=== PATIENT | female | born 1975 | race Two or more races ===

== ENCOUNTER 2019-03-25 14:52 | Inpatient (IN) | payer OTHER ==
[2019-03-25 18:41] VITALS: BMI 24.5
--- NOTE | 2019-03-25 19:25 | HP ---
CIWA Score - Admission Criteria [facility]ASAS Guidelines: Admission for Medically Managed Detox: Requires at least one of the followin. CIWA greater than 12 2. Seizures within the past 24 hours 3. Delirium tremens within the past 24 hours 4. Hallucinations within the past 24 hours 5. Acute intervention needed for co occurring medical disorder 6. Acute intervention needed for co occurring psychiatric disorder 7. Severe withdrawal that cannot be handled at a lower level of care (continued vomiting, continued diarrhea, abnormal vital signs) requiring intravenous medication and/or fluids 8. Admitting History and Physical - Past Medical History ...LMP: 04/10/15 - Smoking History Smoking history: Current every day smoker Have you smoked in the past 12 months: Yes Aproximately how many cigarettes per day: 10 - Alcohol/Substance Use Hx Alcohol Use: Yes (reports drinking since 12 years old,2-6 pcks and 2 pints of vodka daily) Admission [facility] Allergies/Adverse Reactions: Allergies Allergy/AdvReac Type Severity Reaction Status Date / Time Fish Containing Products Allergy Vomiting Verified 03/25/19 18:24 No Known Drug Allergies Allergy Verified 04/26/15 17:14 seafood Allergy Severe Vomiting Uncoded 04/26/15 17:14 - Ebola screening Have you traveled outside of the country in the last 21 days: No (N) Have you had contact with anyone from an Ebola affected area: No Do you have a fever: No Patient History - Patient Medical History Hx Anemia: No Hx Asthma: Yes (ON ALBUTEROL INHALER.) Hx Chronic Obstructive Pulmonary Disease (COPD): No Hx Cancer: No Hx Cardiac Disorders: No Hx Congestive Heart Failure: No Hx Hypertension: No Hx Hypercholesterolemia: No Hx Pacemaker: No HX Cerebrovascular Accident: No Hx Seizures: No Hx Dementia: No Hx Diabetes: No Hx Gastrointestinal Disorders: Yes (UPSET STOMACH) Hx Liver Disease: No Hx Genitourinary Disorders: No Hx Sexually Transmitted Disorders: No Hx Renal Disease (ESRD): No Hx Thyroid Disease: No Hx Human Immunodeficiency Virus (HIV): No (last 2007) Hx Hepatitis C: No Hx Depression: No Hx Suicide Attempt: No Hx Bipolar Disorder: No Hx Schizophrenia: No - Patient Surgical History Past Surgical History: No Hx Neurologic Surgery: No Hx Cataract Extraction: No Hx Cardiac Surgery: No Hx Lung Surgery: No Hx Breast Surgery: No Hx Breast Biopsy: No Hx Abdominal Surgery: No Hx Appendectomy: No Hx Cholecystectomy: No Hx Genitourinary Surgery: No Hx Section: No Hx Orthopedic Surgery: No Anesthesia Reaction: No - PPD History Date: 04/19/15 Results: 0MM - Reproductive History Last Menstrual Period: 04/10/15 - Smoking Cessation Smoking history: Current every day smoker Have you smoked in the past 12 months: Yes Aproximately how many cigarettes per day: 10 Hx Chewing Tobacco Use: No Initiated information on smoking cessation: Yes 'Breaking Loose' booklet given: 03/25/19 - Substance & Tx. History Hx Alcohol Use: Yes Hx Substance Use: Yes (PCP ) Substance Use Type: Alcohol - Substances abused PCP Substance route: Smoking Frequency: 1-2 times per week Amount used: 1 bag Age of first use: 32 Date of last use: 03/24/19 Alcohol Substance route: Oral Frequency: 1-2 times per week Amount used: 1-2 can x 24 - 40 oz beer Age of first use: 15 Date of last use: 03/24/19 Admission Physical Exam BHS - Vital Signs Vital Signs: Vital Signs - 24 hr 03/25/19 18:20 Temperature 97.2 F L Pulse Rate 86 Respiratory 20 Rate Blood Pressure 141/91 Breathalyzer - Breathalyzer Breathalyzer: 0 Urine Drug Screen - Test Device Lot number: [id number] Expiration date: 11/19/20 - Control Is test valid?: Yes - Results Drug screen NEGATIVE: No Urine drug screen results: MTD-Methadone
[2019-03-25] MEDS ORDERED: ALBUTEROL SO4 8 GM HFA INHALER IH PRN (19:26)
--- NOTE | 2019-03-25 19:34 | HP ---
CIWA Score - Admission Criteria OASAS Guidelines: Admission for Medically Managed Detox: Requires at least one of the followin. CIWA greater than 12 2. Seizures within the past 24 hours 3. Delirium tremens within the past 24 hours 4. Hallucinations within the past 24 hours 5. Acute intervention needed for co occurring medical disorder 6. Acute intervention needed for co occurring psychiatric disorder 7. Severe withdrawal that cannot be handled at a lower level of care (continued vomiting, continued diarrhea, abnormal vital signs) requiring intravenous medication and/or fluids 8. Admitting History and Physical - Past Medical History ...LMP: 04/10/15 - Smoking History Smoking history: Current every day smoker Have you smoked in the past 12 months: Yes Aproximately how many cigarettes per day: 10 - Alcohol/Substance Use Hx Alcohol Use: Yes Admission ROS [facility] - HPI Chief Complaint: PCP and alcohol rehabilitation Allergies/Adverse Reactions: Allergies Allergy/AdvReac Type Severity Reaction Status Date / Time Fish Containing Products Allergy Vomiting Verified 03/25/19 18:24 No Known Drug Allergies Allergy Verified 04/26/15 17:14 seafood Allergy Severe Vomiting Uncoded 04/26/15 17:14 History of Present Illness: Patient is as 43 yo male with hx of alcohol use disorder and PCP use disorder is here here for rehabilitation, patient reports he was referred from [facility] outpatient. utox positive for methadone, denies use of methadone or methadone program. Patient PMHX: bronchial Asthma. Psych: depression and anxiety on meds. Denies SI/HI or hx of suicide attempt. Denies hx of seizures or blackouts. Exam Limitations: No Limitations - Ebola screening Have you traveled outside of the country in the last 21 days: No (N) Have you had contact with anyone from an Ebola affected area: No Do you have a fever: No - Review of Systems Constitutional: No Symptoms Reported EENT: reports: No Symptoms Reported Respiratory: reports: See HPI Cardiac: reports: No Symptoms Reported GI: reports: No Symptoms Reported : reports: No Symptoms Reported Musculoskeletal: reports: Back Pain Integumentary: reports: No Symptoms Reported Neuro: reports: No Symptoms reported Endocrine: reports: No Symptoms Reported Hematology: reports: No Symptoms Reported Psychiatric: reports: Orientated x3, Anxious Other Systems: Reviewed and Negative Patient History - Patient Medical History Hx Anemia: No Hx Asthma: Yes (ON ALBUTEROL INHALER.) Hx Chronic Obstructive Pulmonary Disease (COPD): No Hx Cancer: No Hx Cardiac Disorders: No Hx Congestive Heart Failure: No Hx Hypertension: No Hx Hypercholesterolemia: No Hx Pacemaker: No HX Cerebrovascular Accident: No Hx Seizures: No Hx Dementia: No Hx Diabetes: No Hx Gastrointestinal Disorders: Yes (UPSET STOMACH) Hx Liver Disease: No Hx Genitourinary Disorders: No Hx Sexually Transmitted Disorders: No Hx Renal Disease (ESRD): No Hx Thyroid Disease: No Hx Human Immunodeficiency Virus (HIV): No (last 2007) Hx Hepatitis C: No Hx Depression: No Hx Suicide Attempt: No Hx Bipolar Disorder: No Hx Schizophrenia: No - Patient Surgical History Past Surgical History: No Hx Neurologic Surgery: No Hx Cataract Extraction: No Hx Cardiac Surgery: No Hx Lung Surgery: No Hx Breast Surgery: No Hx Breast Biopsy: No Hx Abdominal Surgery: No Hx Appendectomy: No Hx Cholecystectomy: No Hx Genitourinary Surgery: No Hx Section: No Hx Orthopedic Surgery: No Anesthesia Reaction: No - PPD History Date: 04/19/15 Results: 0MM - Reproductive History Last Menstrual Period: 04/10/15 - Smoking Cessation Smoking history: Current every day smoker Have you smoked in the past 12 months: Yes Aproximately how many cigarettes per day: 10 Hx Chewing Tobacco Use: No Initiated information on smoking cessation: Yes 'Breaking Loose' booklet given: 03/25/19 - Substance & Tx. History Hx Alcohol Use: Yes Hx Substance Use: Yes (PCP) Substance Use Type: Alcohol Hx Substance Use Treatment: Yes ([facility] out patient. [facility] detox 2014) - Substances abused PCP Substance route: Smoking Frequency: 1-2 times per week Amount used: 1 bag Age of first use: 32 Date of last use: 03/24/19 Alcohol Substance route: Oral Frequency: 1-2 times per week Amount used: 1-2 can x 24 - 40 oz beer someitmes binge Age of first use: 15 Date of last use: 03/24/19 Admission Physical Exam BHS - Vital Signs Vital Signs: Vital Signs - 24 hr 03/25/19 18:20 Temperature 97.2 F L Pulse Rate 86 Respiratory 20 Rate Blood Pressure 141/91 - Physical General Appearance: Yes: Appropriately Dressed, Thin, Anxious HEENTM: Yes: EOMI, Hearing grossly Normal, Normal ENT Inspection, Normocephalic , Normal Voice, KHLOE, Pharynx Normal, Tm's normal Respiratory: Yes: Chest Non-Tender, Lungs Clear, Normal Breath Sounds, No Respiratory Distress, No Accessory Muscle Use Neck: Yes: Within Normal Limits Breast: Yes: Breast Exam Deferred Cardiology: Yes: Regular Rhythm, Regular Rate Abdominal: Yes: Normal Bowel Sounds, Non Tender, Flat, Soft Genitourinary: Yes: Within Normal Limits Back: Yes: Normal Inspection Musculoskeletal: Yes: Within Normal Limits Extremities: Yes: Normal Capillary Refill, Normal Inspection, Normal Range of Motion, Non-Tender Neurological: Yes: 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 NML intact, Fully Oriented, Alert, Motor Strength 5/5, Normal Mood/Affect, Normal Response Integumentary: Yes: Normal Color, Dry, Warm Lymphatic: Yes: Within Normal Limits - Diagnostic (1) Alcohol abuse Current Visit: Yes Status: Acute (2) Asthma Current Visit: Yes Status: Chronic (3) Nicotine dependence Current Visit: Yes Status: Chronic (4) PCP abuse Current Visit: Yes Status: Chronic Breathalyzer - Breathalyzer Breathalyzer: 0 Urine Drug Screen - Test Device Lot number: [id number] Expiration date: 11/19/20 - Control Is test valid?: Yes - Results Drug screen NEGATIVE: No Urine drug screen results: MTD-Methadone Inpatient Rehab Admission - Rehab Decision to Admit Inpatient rehab admission?: Yes - Initial Determination Are CD services needed?: Yes Free of communicable disease: Yes Not in need of hospitalization: Yes - Rehab Admission Criteria Previous failed treatment: Yes Poor recovery environment: Yes Comorbidities: Yes Lacks judgement: Yes Patient is meeting Inpatient Rehab admission criteria:: Yes
[2019-03-25] MEDS ORDERED: LOPERAMIDE HCL 2 MG CAPSULE PO PRN (19:37)
[2019-03-25] MEDS ORDERED: MAGNESIUM CITRATE 300 ML BOTTLE PO PRN (19:37)
[2019-03-25] MEDS ORDERED: MAG HYDROX/AL HYDROX/SIMETH 30 ML UNIT-DOSE CUP PO PRN (19:37)
[2019-03-25] MEDS ORDERED: guaiFENesin 200 MG/10 ML 10 ML UNIT-DOSE CUPS PO PRN (19:37)
[2019-03-25] MEDS ORDERED: MAGNESIUM HYDROX 2400MG/30ML ORAL SUSPENSION 30 ML CUP PO PRN (19:37)
[2019-03-25] MEDS ORDERED: ACETAMINOPHEN 325 MG TABLET (FP) PO PRN (19:37)
[2019-03-25] MEDS ORDERED: MENTHOL/PHENOL 1 EACH UD MM PRN (19:37)
[2019-03-25] MEDS ORDERED: NICOTINE POLACRILEX 2 MG GUM BC PRN (19:37)
[2019-03-25] MEDS ORDERED: P-EPHED 60MG/TRIPROLIDI 2.5MG TABLET PO PRN (19:37)
[2019-03-25] MEDS ORDERED: ALBUTEROL SO4 2.5/IPRATROPIUM 0.5 INH SOL 3 ML VIAL.NEB. NEB PRN (19:41)
[2019-03-25] MEDS ORDERED: TUBERCULIN PPD 5 TU/0.1ML VIAL ID ONE (21:05)
[2019-03-25] MEDS: THIAMINE HCL 100 MG TABLET (FP) PO SCH (21:45)
[2019-03-25] MEDS: BUDESONIDE/FORMETEROL FUMARATE 80/4.5 mcg INHALER IH SCH (21:47)
[2019-03-25] MEDS: MELATONIN 5 MG TABLETS PO PRN (23:02)
[2019-03-26] MEDS: hydrOXYzine PAMOATE 25 MG CAPSULE (FP) PO PRN (03:17)
[2019-03-26] MEDS ORDERED: PT OWN MED DRAWER 7, Y5N ONE (08:03)
[2019-03-26] MEDS: PRENATAL VITAMINS W/ FOLIC ACID TABLET (FP) PO SCH (09:43)
[2019-03-26] MEDS: BUDESONIDE/FORMETEROL FUMARATE 80/4.5 mcg INHALER IH SCH ×2 (09:43→21:40)
[2019-03-26] MEDS: NICOTINE 14 MG/24 HOURS TOPICAL PATCH TD SCH (09:43)
--- NOTE | 2019-03-26 09:47 | EKG ---
Test Reason : Blood Pressure : / mmHG Vent. Rate : 079 BPM Atrial Rate : 079 BPM P-R Int : 168 ms QRS Dur : 096 ms QT Int : 422 ms P-R-T Axes : 076 056 056 degrees QTc Int : 483 ms NORMAL SINUS RHYTHM POSSIBLE LEFT ATRIAL ENLARGEMENT INCOMPLETE RIGHT BUNDLE BRANCH BLOCK PROLONGED QT ABNORMAL ECG NO PREVIOUS ECGS AVAILABLE Confirmed by TUNG ALVARADO MD ([id number]) on 03/26/2019 9:46:44 AM Referred By: Confirmed By:TUNG ALVARADO MD
[2019-03-26 11:15] LABS: HEMATOCRIT 44.7 % (32.4-45.2); HEMOGLOBIN 14.8 GM/dL (10.7-15.3); MCH 29.3 pg (25.7-33.7); MEAN CELL VOLUME 88.9 fl (80-96); MEAN PLT VOLUME 8.2 fl (7.5-11.1); PLATELET COUNT 276 K/MM3 (134-434); RBC 5.03 M/mm3 (3.60-5.2); RDW 15.6 % (11.6-15.6); WHITE BLOOD COUNT 9.6 K/mm3 (4.0-10.0)
[2019-03-26 11:41] LABS: ALBUMIN 3.6 g/dl (3.4-5.0); BILIRUBIN,TOTAL 0.5 mg/dL (0.2-1); BLOOD UREA NITROGEN 7.3 mg/dL (7-18); CALCIUM 9.3 mg/dL (8.5-10.1); CREATININE 0.7 mg/dL (0.55-1.3); POTASSIUM 3.9 mmol/L (3.5-5.1); TOT PROT 6.9 g/dl (6.4-8.2)
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
[2019-03-26] MEDS: THIAMINE HCL 100 MG TABLET (FP) PO SCH (21:41)
[2019-03-26] MEDS: traZODone HCL 100 MG TABLET (FP) PO SCH (21:41)
[2019-03-26] MEDS: MELATONIN 5 MG TABLETS PO PRN (21:42)
[2019-03-27] MEDS: NICOTINE 14 MG/24 HOURS TOPICAL PATCH TD SCH (09:50)
[2019-03-27] MEDS: PRENATAL VITAMINS W/ FOLIC ACID TABLET (FP) PO SCH (09:50)
[2019-03-27] MEDS: BUDESONIDE/FORMETEROL FUMARATE 80/4.5 mcg INHALER IH SCH ×2 (09:50→21:55)
[2019-03-27] MEDS: IBUPROFEN 400 MG TABLET (FP) PO PRN ×2 (09:51→21:53)
[2019-03-27 18:52] LABS: URINE APPEARANCE Turbid; URINE BILIRUBIN Negative (NEGATIVE); URINE COLOR Yellow; URINE GLUCOSE (UA) Trace (NEGATIVE); URINE KETONE Negative (NEGATIVE); URINE LEUK ESTERASE Negative (NEGATIVE); URINE NITRITE Negative (NEGATIVE); URINE PROTEIN Negative (NEGATIVE); URINE UROBILINOGEN 0.2 mg/dL (0.2-1.0)
[2019-03-27 19:07] LABS: EPI CELLS 0-5 /HPF (0-5/HPF); URINE RBC 0-4 /hpf (0-4); URINE WBC 0-5 /hpf (0-5)
[2019-03-27 19:12] LABS: URINE CRYSTALS positive /hpf
[2019-03-27] MEDS: traZODone HCL 100 MG TABLET (FP) PO SCH (21:51)
[2019-03-27] MEDS: THIAMINE HCL 100 MG TABLET (FP) PO SCH (21:51)
[2019-03-27] MEDS: MELATONIN 5 MG TABLETS PO PRN (21:52)
[2019-03-27] MEDS ORDERED: PT OWN MED DRAWER 7, Y5N ONE (21:56)
[2019-03-28] MEDS: NICOTINE 14 MG/24 HOURS TOPICAL PATCH TD SCH (10:33)
[2019-03-28] MEDS: PRENATAL VITAMINS W/ FOLIC ACID TABLET (FP) PO SCH (10:33)
[2019-03-28] MEDS: BUDESONIDE/FORMETEROL FUMARATE 80/4.5 mcg INHALER IH SCH ×2 (10:34→21:21)
[2019-03-28] MEDS: IBUPROFEN 400 MG TABLET (FP) PO PRN ×2 (10:34→21:24)
[2019-03-28] MEDS ORDERED: PT OWN MED DRAWER 7, Y5N ONE ×4 (11:04→21:51)
[2019-03-28] MEDS ORDERED: METHOCARBAMOL 500 MG TABLET PO PRN (12:18)
--- NOTE | 2019-03-28 12:30 | PN ---
[facility] Progress Note Note: Patient c/o body aches and low back pain. Patient denies recent injuries and states symptoms chronic. Patient also c/o white vaginal discharge and vaginal itching. Recently treated with abx for tooth infection prior to admission. Vital Signs Temperature 97.3 F L 03/28/19 07:17 Pulse Rate 87 03/28/19 07:17 Respiratory Rate 18 03/28/19 07:17 Blood Pressure 134/81 03/28/19 07:17 O2 Sat by Pulse Oximetry (%) Laboratory Tests 03/25/19 03/26/19 03/26/19 14:25 08:10 08:10 WBC 9.6 RBC 5.03 Hgb 14.8 Hct 44.7 D MCV 88.9 MCH 29.3 D MCHC 33.0 RDW 15.6 D Plt Count 276 D MPV 8.2 Sodium 142 Potassium 3.9 Chloride 106 Carbon Dioxide 29 Anion Gap 7 L BUN 7.3 Creatinine 0.7 Est GFR (CKD-EPI)AfAm 122.13 Est GFR (CKD-EPI)NonAf 105.37 Random Glucose 84 Calcium 9.3 Total Bilirubin 0.5 AST 17 ALT 20 Alkaline Phosphatase 135 H Total Protein 6.9 Albumin 3.6 Urine Color Urine Appearance Urine pH Ur Specific [place] Urine Protein Urine Glucose (UA) Urine Ketones Urine Blood Urine Nitrite Urine Bilirubin Urine Urobilinogen Ur Leukocyte Esterase Urine WBC (Auto) Urine RBC (Auto) U Epithel Cells (Auto) Urine Crystals (Auto) Urine Bacteria (Auto) POC Urine HCG, Qual Negative RPR Titer 03/26/19 03/27/19 08:10 14:25 WBC RBC Hgb Hct MCV MCH MCHC RDW Plt Count MPV Sodium Potassium Chloride Carbon Dioxide Anion Gap BUN Creatinine Est GFR (CKD-EPI)AfAm Est GFR (CKD-EPI)NonAf Random Glucose Calcium Total Bilirubin AST ALT Alkaline Phosphatase Total Protein Albumin Urine Color Yellow Urine Appearance Turbid Urine pH 6.0 Ur Specific [place] >= 1.030 Urine Protein Negative Urine Glucose (UA) Trace Urine Ketones Negative Urine Blood Negative Urine Nitrite Negative Urine Bilirubin Negative Urine Urobilinogen 0.2 Ur Leukocyte Esterase Negative Urine WBC (Auto) 0-5 Urine RBC (Auto) 0-4 U Epithel Cells (Auto) 0-5 Urine Crystals (Auto) positive Urine Bacteria (Auto) few POC Urine HCG, Qual RPR Titer Nonreactive PE alert and oriented x 3 skin warm and dry +perrla, eoms intact bl gi nt, nd no pelvic tenderness ext full rom, amb ad stanton vaginal d/c likely yeast infection muscle cramps will order miconazole supp x 3 days flexeril 10mg bid monitor clinically
[2019-03-28] MEDS: THIAMINE HCL 100 MG TABLET (FP) PO SCH (21:22)
[2019-03-28] MEDS: traZODone HCL 100 MG TABLET (FP) PO SCH (21:22)
[2019-03-28] MEDS: MELATONIN 5 MG TABLETS PO PRN (21:23)
[2019-03-28] MEDS: CYCLOBENZAPRINE HCL 10 MG TABLET (FP) PO SCH (21:23)
[2019-03-28] MEDS: MICONAZOLE NITRATE 200 MG VAGINAL SUPPOSITORY PV SCH (21:24)
[2019-03-29] MEDS: CYCLOBENZAPRINE HCL 10 MG TABLET (FP) PO SCH ×2 (10:00→21:21)
[2019-03-29] MEDS: NICOTINE 14 MG/24 HOURS TOPICAL PATCH TD SCH (10:00)
[2019-03-29] MEDS: BUDESONIDE/FORMETEROL FUMARATE 80/4.5 mcg INHALER IH SCH ×2 (10:00→21:26)
[2019-03-29] MEDS: PRENATAL VITAMINS W/ FOLIC ACID TABLET (FP) PO SCH (10:00)
[2019-03-29] MEDS: hydrOXYzine PAMOATE 25 MG CAPSULE (FP) PO PRN (21:21)
[2019-03-29] MEDS: traZODone HCL 100 MG TABLET (FP) PO SCH (21:21)
[2019-03-29] MEDS: THIAMINE HCL 100 MG TABLET (FP) PO SCH (21:21)
[2019-03-29] MEDS: MICONAZOLE NITRATE 200 MG VAGINAL SUPPOSITORY PV SCH (21:22)
[2019-03-29] MEDS: MELATONIN 5 MG TABLETS PO PRN (21:22)
[2019-03-30] MEDS: CYCLOBENZAPRINE HCL 10 MG TABLET (FP) PO SCH ×2 (09:46→21:42)
[2019-03-30] MEDS: BUDESONIDE/FORMETEROL FUMARATE 80/4.5 mcg INHALER IH SCH ×2 (09:46→22:53)
[2019-03-30] MEDS: NICOTINE 14 MG/24 HOURS TOPICAL PATCH TD SCH (09:46)
[2019-03-30] MEDS: PRENATAL VITAMINS W/ FOLIC ACID TABLET (FP) PO SCH (09:46)
[2019-03-30] MEDS ORDERED: FLU VACC QS2019-20(6MOS UP)/PF 60 MCG/0.5 ML SYRINGE IM ONE (15:52)
[2019-03-30] MEDS ORDERED: PNEUMOCOCCAL 23 VACCINE 0.5 ML VIAL IM ONE (15:52)
[2019-03-30] MEDS ORDERED: ALBUTEROL SO4 2.5/IPRATROPIUM 0.5 INH SOL 3 ML VIAL.NEB. NEB PRN (19:41)
[2019-03-30] MEDS: hydrOXYzine PAMOATE 25 MG CAPSULE (FP) PO PRN (21:42)
[2019-03-30] MEDS: THIAMINE HCL 100 MG TABLET (FP) PO SCH (21:42)
[2019-03-30] MEDS: traZODone HCL 100 MG TABLET (FP) PO SCH (21:42)
[2019-03-30] MEDS: MELATONIN 5 MG TABLETS PO PRN (21:43)
[2019-03-30] MEDS ORDERED: PT OWN MED DRAWER 7, Y5N ONE (22:09)
[2019-03-30] MEDS: MICONAZOLE NITRATE 200 MG VAGINAL SUPPOSITORY PV SCH (22:32)
[2019-03-31] MEDS ORDERED: PT OWN MED DRAWER 7, Y5N ONE ×2 (08:09→23:13)
[2019-03-31] MEDS: IBUPROFEN 400 MG TABLET (FP) PO PRN (09:55)
[2019-03-31] MEDS: CYCLOBENZAPRINE HCL 10 MG TABLET (FP) PO SCH ×2 (09:55→21:27)
[2019-03-31] MEDS: BUDESONIDE/FORMETEROL FUMARATE 80/4.5 mcg INHALER IH SCH ×2 (09:56→21:28)
[2019-03-31] MEDS: PRENATAL VITAMINS W/ FOLIC ACID TABLET (FP) PO SCH (09:56)
[2019-03-31] MEDS: NICOTINE 14 MG/24 HOURS TOPICAL PATCH TD SCH (09:56)
[2019-03-31] MEDS: THIAMINE HCL 100 MG TABLET (FP) PO SCH (21:27)
[2019-03-31] MEDS: traZODone HCL 100 MG TABLET (FP) PO SCH (21:27)
[2019-03-31] MEDS: MELATONIN 5 MG TABLETS PO PRN (21:27)
[2019-04-01] MEDS ORDERED: PT OWN MED DRAWER 7, Y5N ONE ×2 (08:39→21:10)
[2019-04-01] MEDS: PRENATAL VITAMINS W/ FOLIC ACID TABLET (FP) PO SCH (10:23)
[2019-04-01] MEDS: CYCLOBENZAPRINE HCL 10 MG TABLET (FP) PO SCH ×2 (10:24→21:08)
[2019-04-01] MEDS: NICOTINE 14 MG/24 HOURS TOPICAL PATCH TD SCH (10:24)
[2019-04-01] MEDS: BUDESONIDE/FORMETEROL FUMARATE 80/4.5 mcg INHALER IH SCH ×2 (10:24→21:10)
[2019-04-01] MEDS: IBUPROFEN 400 MG TABLET (FP) PO PRN ×2 (10:25→21:09)
[2019-04-01] MEDS: THIAMINE HCL 100 MG TABLET (FP) PO SCH (21:08)
[2019-04-01] MEDS: traZODone HCL 100 MG TABLET (FP) PO SCH (21:08)
[2019-04-01] MEDS: MELATONIN 5 MG TABLETS PO PRN (21:08)
[2019-04-02] MEDS ORDERED: PT OWN MED DRAWER 7, Y5N ONE ×3 (09:10→23:21)
[2019-04-02] MEDS: IBUPROFEN 400 MG TABLET (FP) PO PRN ×2 (09:53→21:12)
[2019-04-02] MEDS: PRENATAL VITAMINS W/ FOLIC ACID TABLET (FP) PO SCH (09:53)
[2019-04-02] MEDS: NICOTINE 14 MG/24 HOURS TOPICAL PATCH TD SCH (09:53)
[2019-04-02] MEDS: BUDESONIDE/FORMETEROL FUMARATE 80/4.5 mcg INHALER IH SCH ×2 (09:53→21:12)
[2019-04-02] MEDS: CYCLOBENZAPRINE HCL 10 MG TABLET (FP) PO SCH ×2 (09:53→21:10)
[2019-04-02] MEDS: THIAMINE HCL 100 MG TABLET (FP) PO SCH (21:10)
[2019-04-02] MEDS: traZODone HCL 100 MG TABLET (FP) PO SCH (21:10)
[2019-04-02] MEDS: hydrOXYzine PAMOATE 25 MG CAPSULE (FP) PO PRN (21:10)
[2019-04-02] MEDS: MICONAZOLE NITRATE 200 MG VAGINAL SUPPOSITORY PV SCH (21:11)
[2019-04-03] MEDS ORDERED: PT OWN MED DRAWER 7, Y5N ONE ×2 (08:44→23:03)
[2019-04-03] MEDS: BUDESONIDE/FORMETEROL FUMARATE 80/4.5 mcg INHALER IH SCH ×2 (10:01→21:52)
[2019-04-03] MEDS: PRENATAL VITAMINS W/ FOLIC ACID TABLET (FP) PO SCH (10:01)
[2019-04-03] MEDS: CYCLOBENZAPRINE HCL 10 MG TABLET (FP) PO SCH ×2 (10:01→21:51)
[2019-04-03] MEDS: NICOTINE 14 MG/24 HOURS TOPICAL PATCH TD SCH (10:01)
[2019-04-03] MEDS: IBUPROFEN 400 MG TABLET (FP) PO PRN ×2 (10:02→21:52)
[2019-04-03] MEDS: THIAMINE HCL 100 MG TABLET (FP) PO SCH (21:51)
[2019-04-03] MEDS: traZODone HCL 100 MG TABLET (FP) PO SCH (21:51)
[2019-04-03] MEDS: hydrOXYzine PAMOATE 25 MG CAPSULE (FP) PO PRN (21:51)
[2019-04-04] MEDS: BUDESONIDE/FORMETEROL FUMARATE 80/4.5 mcg INHALER IH SCH ×2 (09:41→21:36)
[2019-04-04] MEDS: NICOTINE 14 MG/24 HOURS TOPICAL PATCH TD SCH (09:41)
[2019-04-04] MEDS: CYCLOBENZAPRINE HCL 10 MG TABLET (FP) PO SCH ×2 (09:42→21:37)
[2019-04-04] MEDS: PRENATAL VITAMINS W/ FOLIC ACID TABLET (FP) PO SCH (09:42)
[2019-04-04] MEDS: IBUPROFEN 400 MG TABLET (FP) PO PRN ×2 (09:43→21:38)
[2019-04-04] MEDS ORDERED: PT OWN MED DRAWER 7, Y5N ONE ×2 (19:54→21:50)
[2019-04-04] MEDS: traZODone HCL 100 MG TABLET (FP) PO SCH (21:36)
[2019-04-04] MEDS: hydrOXYzine PAMOATE 25 MG CAPSULE (FP) PO PRN (21:36)
[2019-04-04] MEDS: THIAMINE HCL 100 MG TABLET (FP) PO SCH (21:36)
[2019-04-05] MEDS: CYCLOBENZAPRINE HCL 10 MG TABLET (FP) PO SCH ×2 (09:39→21:41)
[2019-04-05] MEDS: PRENATAL VITAMINS W/ FOLIC ACID TABLET (FP) PO SCH (09:40)
[2019-04-05] MEDS: BUDESONIDE/FORMETEROL FUMARATE 80/4.5 mcg INHALER IH SCH ×2 (09:40→21:43)
[2019-04-05] MEDS: NICOTINE 14 MG/24 HOURS TOPICAL PATCH TD SCH (09:40)
[2019-04-05] MEDS: traZODone HCL 100 MG TABLET (FP) PO SCH (21:41)
[2019-04-05] MEDS: MELATONIN 5 MG TABLETS PO PRN (21:41)
[2019-04-05] MEDS: THIAMINE HCL 100 MG TABLET (FP) PO SCH (21:41)
[2019-04-05] MEDS: IBUPROFEN 400 MG TABLET (FP) PO PRN (21:42)
[2019-04-06] MEDS: PRENATAL VITAMINS W/ FOLIC ACID TABLET (FP) PO SCH (09:36)
[2019-04-06] MEDS: CYCLOBENZAPRINE HCL 10 MG TABLET (FP) PO SCH ×2 (09:36→21:29)
[2019-04-06] MEDS: BUDESONIDE/FORMETEROL FUMARATE 80/4.5 mcg INHALER IH SCH ×2 (09:37→21:30)
[2019-04-06] MEDS: NICOTINE 14 MG/24 HOURS TOPICAL PATCH TD SCH (09:37)
[2019-04-06] MEDS: IBUPROFEN 400 MG TABLET (FP) PO PRN ×2 (09:38→21:30)
[2019-04-06] MEDS: THIAMINE HCL 100 MG TABLET (FP) PO SCH (21:29)
[2019-04-06] MEDS: hydrOXYzine PAMOATE 25 MG CAPSULE (FP) PO PRN (21:29)
[2019-04-06] MEDS: traZODone HCL 100 MG TABLET (FP) PO SCH (21:31)
[2019-04-06] MEDS ORDERED: PT OWN MED DRAWER 7, Y5N ONE (22:24)
[2019-04-07] MEDS ORDERED: PT OWN MED DRAWER 7, Y5N ONE ×4 (08:27→23:06)
[2019-04-07] MEDS: PRENATAL VITAMINS W/ FOLIC ACID TABLET (FP) PO SCH (09:46)
[2019-04-07] MEDS: NICOTINE 14 MG/24 HOURS TOPICAL PATCH TD SCH (09:46)
[2019-04-07] MEDS: CYCLOBENZAPRINE HCL 10 MG TABLET (FP) PO SCH ×2 (09:46→21:30)
[2019-04-07] MEDS: BUDESONIDE/FORMETEROL FUMARATE 80/4.5 mcg INHALER IH SCH ×2 (09:47→21:29)
--- NOTE | 2019-04-07 13:44 | DS ---
[facility] Rehab Discharge Summary - [facility] Rehab Discharge Summary Admission Date: 03/25/19 Discharge Date: 04/08/19 - History Present History: Alcohol dependence Additional Comments: Pt is a 43 y/o female with a hx of alcohol dependence admitted to rehab and discharging on 04/08/19. Pt met with her counselor and pt prefers to continue to attend her AA/NA meetings after discharge. Pt reports she has primary care at [facility] in [place], [place] with dr. Veras and will follow up after discharge. Pertinent Past History: Asthma weight Loss - Discharge Physical Exam Vital Signs: Vital Signs Temperature 98.0 F 04/07/19 06:57 Pulse Rate 90 04/07/19 06:57 Respiratory Rate 18 04/07/19 06:57 Blood Pressure 133/84 04/07/19 06:57 O2 Sat by Pulse Oximetry (%) Alert o x 3 nad oob ambulating with steady gait cardiac:s1 s2, rrr lungs:cta,alba. abdomen:soft,+bs,nt,nd extremities/skin:no edema,full ROM,skin intact Pertinent Admission Physical Exam Findings: Laboratory Tests 03/25/19 03/26/19 03/26/19 14:25 08:10 08:10 WBC 9.6 RBC 5.03 Hgb 14.8 Hct 44.7 D MCV 88.9 MCH 29.3 D MCHC 33.0 RDW 15.6 D Plt Count 276 D MPV 8.2 Sodium 142 Potassium 3.9 Chloride 106 Carbon Dioxide 29 Anion Gap 7 L BUN 7.3 Creatinine 0.7 Est GFR (CKD-EPI)AfAm 122.13 Est GFR (CKD-EPI)NonAf 105.37 Random Glucose 84 Calcium 9.3 Total Bilirubin 0.5 AST 17 ALT 20 Alkaline Phosphatase 135 H Total Protein 6.9 Albumin 3.6 Urine Color Urine Appearance Urine pH Ur Specific [place] Urine Protein Urine Glucose (UA) Urine Ketones Urine Blood Urine Nitrite Urine Bilirubin Urine Urobilinogen Ur Leukocyte Esterase Urine WBC (Auto) Urine RBC (Auto) U Epithel Cells (Auto) Urine Crystals (Auto) Urine Bacteria (Auto) POC Urine HCG, Qual Negative RPR Titer 03/26/19 03/27/19 08:10 14:25 WBC RBC Hgb Hct MCV MCH MCHC RDW Plt Count MPV Sodium Potassium Chloride Carbon Dioxide Anion Gap BUN Creatinine Est GFR (CKD-EPI)AfAm Est GFR (CKD-EPI)NonAf Random Glucose Calcium Total Bilirubin AST ALT Alkaline Phosphatase Total Protein Albumin Urine Color Yellow Urine Appearance Turbid Urine pH 6.0 Ur Specific [place] >= 1.030 Urine Protein Negative Urine Glucose (UA) Trace Urine Ketones Negative Urine Blood Negative Urine Nitrite Negative Urine Bilirubin Negative Urine Urobilinogen 0.2 Ur Leukocyte Esterase Negative Urine WBC (Auto) 0-5 Urine RBC (Auto) 0-4 U Epithel Cells (Auto) 0-5 Urine Crystals (Auto) positive Urine Bacteria (Auto) few POC Urine HCG, Qual RPR Titer Nonreactive Unremarkabl/stable - Treatment Discharge Condition: Discharge condition good Hospital Course: Rehabilitated safely and responded well Wants to go to AA/NA meetings for aftercare. - Medication Discharge Medications: Ambulatory Orders Sertraline HCl [Zoloft -] 100 mg PO DAILY #30 tablet 11/20/15 traZODone HCL [Desyrel -] 100 mg PO HS #30 tablet 11/20/15 Naltrexone HCl [Revia] 50 mg PO AM #30 tablet 12/06/15 Buspirone HCl [Buspar -] 10 mg PO BID #60 tablet 10/12/18 Albuterol Sulfate Inhaler - [Ventolin HFA Inhaler -] 2 inh PO Q4H PRN #1 cartridge 04/07/19 Budesonide/Formeterol Fumarate [SYMBICORT 80/4.5mcg -] 1 puff IH BID #1 can Thiamine HCl [Vitamin B1 -] 100 mg PO HS #30 tablet 04/07/19 traZODone HCL [Desyrel -] 100 mg PO HS #30 tablet 04/07/19 - Medication-Assisted Treatment (MAT) Medication-Assisted Treatment (MAT): No - Discharge Instructions Diet, activity, other medical instructions: Diet:Regular Activity: oob ad stanton Other medical instructions:Follow up with Cd aftercare and primary care as recommended/planned - Diagnosis (1) Alcohol dependence Status: Chronic Qualifiers: Substance use status: uncomplicated Qualified Code(s): F10.20 - Alcohol dependence, uncomplicated (2) Asthma Status: Chronic Qualifiers: Asthma persistence: unspecified (3) Nicotine dependence Status: Chronic Qualifiers: Nicotine product type: cigarettes Substance use status: uncomplicated Qualified Code(s): F17.210 - Nicotine dependence, cigarettes, uncomplicated - AMA Did Patient Leave Against Medical Advice: No
--- NOTE | 2019-04-07 13:49 | PREP.REFER ---
HIV PrEP/PEP - PrEP HIV Risk Assessment When was your last HIV test?: 06/2018 HIV Test offered: Refused (Pt wants to follow up with PCP to test after discharge) Are you concerned about any sexual encounters past 6 months?: No Have you had a STI in the last 6 months?: No Have you shared needles or other equipment?: No Are you interested in daily medication to help prevent HIV?: Yes Recommendation: Consider PrEP referral Comment: Pt has primary care at [facility] and states she will follow up with her PCP, Dr. Veras to explore that possibility.
--- NOTE | 2019-04-07 15:43 | PN ---
[facility] Progress Note Note: Psychiatric nurse practitioner note: Patient scheduled for discharge on 04/08/19. A 30 day prescription of Trazodone 100mg HS was electronically sent to [facility], [address] [place] [address], [id number].
[2019-04-07] MEDS: THIAMINE HCL 100 MG TABLET (FP) PO SCH (21:29)
[2019-04-07] MEDS: hydrOXYzine PAMOATE 25 MG CAPSULE (FP) PO PRN (21:29)
[2019-04-07] MEDS: traZODone HCL 100 MG TABLET (FP) PO SCH (21:30)
[2019-04-07] MEDS: IBUPROFEN 400 MG TABLET (FP) PO PRN (21:31)
[2019-04-08 07:12] VITALS: BP 121/79; PULSE 86; TEMP 97.9
[2019-04-08] MEDS: PRENATAL VITAMINS W/ FOLIC ACID TABLET (FP) PO SCH (09:02)
[2019-04-08] MEDS: IBUPROFEN 400 MG TABLET (FP) PO PRN (09:03)
[2019-04-08] MEDS: NICOTINE 14 MG/24 HOURS TOPICAL PATCH TD SCH (09:04)
[2019-04-08] MEDS: BUDESONIDE/FORMETEROL FUMARATE 80/4.5 mcg INHALER IH SCH (09:04)
[2019-04-08] MEDS: CYCLOBENZAPRINE HCL 10 MG TABLET (FP) PO SCH (09:04)
== END 2019-04-08 09:28 | disposition home or self-care (01) | DRG 772 ==
LOC: YASAS 14:52 → Y3E 20:03
PROVIDERS: ADMIT Neuromusculoskeletal Medicine & OMM; ATTEND Neuromusculoskeletal Medicine & OMM
PROC: HZ42ZZZ Group Counseling for Substance Abuse Treatment, Cognitive-Behavioral (ICD-10-PCS; principal; 2019-03-25)
DX: F10.20 Alcohol dependence, uncomplicated (principal); F16.20 Hallucinogen dependence, uncomplicated; F17.210 Nicotine dependence, cigarettes, uncomplicated; F19.282 Other psychoactive substance dependence with psychoactive substance-induced sleep disorder; F41.9 Anxiety disorder, unspecified; F32.9 Major depressive disorder, single episode, unspecified; J45.909 Unspecified asthma, uncomplicated; B37.3 Candidiasis of vulva and vagina; Z91.013 Allergy to seafood
CPT/HCPCS: 36415; 80053; 81003; 81025; 85027; 86593; 93005; 93010